=== PATIENT | male | born 1975 | race Caucasian/White ===

== ENCOUNTER → 2019-10-22 | Outpatient (CLI) | payer OTHER | LOC: LAB 10:08 | PROVIDERS: ATTEND Emergency Medicine | DX: R05 Cough (principal); R06.02 Shortness of breath; Z20.828 Contact with and (suspected) exposure to other viral communicable diseases ==

== ENCOUNTER 2020-01-16 14:05 | Emergency (ER) | payer OTHER ==
[~2020-01-16] VITALS: Ht 182.9 cm; Wt 83.0 kg
[2020-01-16 14:08] VITALS: BP 145/87
== END 2020-01-16 14:31 | disposition home or self-care (01) ==
LOC: ER 14:05
DX: R05 Cough (principal); Z20.828 Contact with and (suspected) exposure to other viral communicable diseases; J02.9 Acute pharyngitis, unspecified; R53.1 Weakness